=== PATIENT | female | born 1930 | race Caucasian/White ===

== ENCOUNTER 2020-07-21 17:52 | Emergency (ER) | payer MEDICARE, OTHER ==
[~2020-07-21] VITALS: Ht 149.9 cm; Wt 62.6 kg
--- NOTE | 2020-07-21 18:07 | NUR ---
BIBS SENT FROM THE URGENT CARE TO ER BED 7. AAOX4. NOT IN RESP DISTRESS. AMBULTORY. CAME IN FOR R LOWER LEG REDNESS, SWELLING AND PAIN X 1 WEEK. PT REPORTS THAT SHE WENT TO THE URGENT CARE AND WAS STARTED ON ATB. DESPITE BEING ON ATB, NO RELIEF AND REDNESS WORSENING. PT DOES NOT RECALL THE EXACT NAME OF THE ATB. PT ALSO NOTED WITH MULTIPLE DRY BROWN SCAB ON THE R LOWER LEG. AWAITING MD FOR EVAL.
[2020-07-21] MEDS ORDERED: VANCOMYCIN 1 GM in IV D5W 250 ML IV ONE (18:30)
[2020-07-21] MEDS ORDERED: VANCOMYCIN 1 GM VIAL ONE (18:34)
[2020-07-21 19:14] LABS: CALCIUM, SERUM 8.6 mg/dL (8.5-10.1); CARBON DIOXIDE 20 mmol/L (21-32); CHLORIDE 103 mmol/L (98-107); CREATININE 2.3 mg/dL (0.6-1.3); GLUCOSE 66 mg/dL (74-106); POTASSIUM 4.7 mmol/L (3.5-5.1); SODIUM SERUM 134 mmol/L (136-145); UREA NITROGEN, BLOOD 42 mg/dL (7-18)
--- NOTE | 2020-07-21 19:45 | NUR ---
verified with md regarding urine. No need for urine sample.
--- NOTE | 2020-07-21 20:12 | NUR ---
CALLED LAB TO FOLLOW UP REGARDING LAB RESULT
[2020-07-21 20:19] LABS: BASOPHILS % (AUTO) 0.2 % (0.0-2.0); HEMATOCRIT 33 % (33-45); HEMOGLOBIN 10.8 g/dL (11.5-14.8); LYMPHOCYTES # (AUTO) 0.9 /CMM (0.8-4.8); MEAN CORPUSCULAR HGB CONC 33 g/dl (31.0-36.0); MEAN CORPUSCULAR VOLUME 86 fL (82-100); MONOCYTES # (AUTO) 0.7 /CMM (0.1-1.30); MONOCYTES % (AUTO) 10.1 % (2.0-12.0); NEUTROPHILS # (AUTO) 4.9 /CMM (1.8-8.9); NEUTROPHILS % (AUTO) 72.7 % (43.0-81.0); PLATELET COUNT (AUTO) 227 /CMM (150-450); RED BLOOD CELL COUNT(AUTO) 3.77 MIL/uL (4.0-5.2); WHITE BLOOD COUNT (AUTO) 6.7 K/uL (4.3-11.0)
[2020-07-21] MEDS ORDERED: IV NS 0.9% 1,000 ML BAG IV ONE (21:00)
[2020-07-21] MEDS ORDERED: PIPERACILLIN /TAZOBACTAM 3.375 G VIAL IV ONE (21:11)
[2020-07-21] MEDS ORDERED: PIPERACILLIN /TAZOBACTAM 3.375 G in IV D5W 50 ML IV ONE (21:30)
--- NOTE | 2020-07-22 00:15 | NUR ---
TRANSFER INFORMATION: PT ACCEPTED AT [facility] ACCEPTING MD PENA PT WILL GO TO ROOM 308-A PHONE # FOR REPORT [facility] ETA 90 MIN
[2020-07-22 00:19] LABS: BILIRUBIN,URINE NEGATIVE (NEGATIVE); COLOR,URINE YELLOW (YELLOW); LEUKOCYTE ESTERASE ,URINE NEGATIVE (NEGATIVE); NITRITE, URINE NEGATIVE (NEGATIVE); PROTEIN,URINE 100 mg/dl (NEGATIVE); UGLUCOSE NEGATIVE (NEGATIVE); UROBILINOGEN,URINE 0.2 EU/dL (0.2)
[2020-07-22 00:22] LABS: BACTERIA,URINE Few /HPF (None Seen); RBC,URINE 0-2 /HPF (0-2); SQUAMOUS EPITHELIAL CELL,UR Few /HPF (None Seen)
--- NOTE | 2020-07-22 01:00 | NUR ---
REPORT CALLED TO [facility]. AWAITING TRANSPORT.
[2020-07-22 01:20] VITALS: BP 152/81
--- NOTE | 2020-07-22 01:23 | NUR ---
TRANSPORT AT [facility] REPORT GIVEN TO EMT TRANSPORT.
== END 2020-07-22 01:24 | disposition short-term general hospital (02) ==
LOC: EDBD 18:01 → ER 18:01
DX: L03.115 Cellulitis of right lower limb (principal); I10 Essential (primary) hypertension; N17.9 Acute kidney failure, unspecified; Z20.822 Contact with and (suspected) exposure to COVID-19
CPT/HCPCS: 36415; 73590; 73610; 80048; 81001; 83605; 84484; 85025; 85730; 87040 ×2; 87086; 87426; 93005; 93971; 96365; 96367; 99285; C9803; J2543; J3370; J7040; J7060